=== PATIENT | male | born 1940 | race Caucasian/White ===

== ENCOUNTER 2025-02-22 07:53 | Outpatient (RCR) | payer MEDICARE, SELFPAY | END 2025-03-23 09:24 | disposition home or self-care (01) | LOC: PT 07:53 | DX: M17.0 Bilateral primary osteoarthritis of knee (principal); M76.02 Gluteal tendinitis, left hip | CPT/HCPCS: 97035; 97110; 97162 ==

== ENCOUNTER 2025-03-01 06:52 | Outpatient (RCR) | payer MEDICARE, SELFPAY | END 2025-04-13 10:50 | disposition home or self-care (01) | LOC: OT 06:52 | PROVIDERS: Visit Provider Family Medicine | DX: M25.541 Pain in joints of right hand (principal); M79.2 Neuralgia and neuritis, unspecified | CPT/HCPCS: 97110; 97112; 97166 ==